=== PATIENT | male | born 1980 | race Caucasian/White ===

== ENCOUNTER → 2017-11-28 | Emergency (ER) | payer BC | END | disposition home or self-care (01) | LOC: E/R 17:10 | DX: R05 Cough (principal); J44.9 Chronic obstructive pulmonary disease, unspecified; J45.909 Unspecified asthma, uncomplicated; Z87.891 Personal history of nicotine dependence | CPT/HCPCS: 99284 ==

== ENCOUNTER 2017-12-11 10:08 | Emergency (ER) | payer BC ==
[2017-12-11] MEDS: FUROSEMIDE 40 MG INJ IV (11:30)
[2017-12-11] MEDS: METHYLPREDNISOLONE 125 MG INJ IV (11:30)
[2017-12-11] MEDS: ALBUTEROL 0.5% (NEB) 2.5 MG/0.5 ML AMP INH (11:37)
[2017-12-11] MEDS: IPRATROPIUM (NEB) 0.5 MG/2.5 ML AMP INH (11:37)
[2017-12-11 11:41] LABS: ADD MAN DIFF? NO
[2017-12-11 11:43] LABS: BASOPHILS % 0.4 % (0.0-2.0); EOSINOPHILS # 0.3 10^3/ul (0.0-0.5); EOSINOPHILS % 3.9 % (0.0-7.0); HEMOGLOBIN 15.1 g/dl (14.0-18.0); LYMPHOCYTES # 1.2 10^3/ul (0.8-2.9); MEAN CORPUSCULAR HEMOGLOBIN 25.9 pg (29.0-33.0); MEAN CORPUSCULAR HGB CONC 32.8 g/dl (32.0-37.0); MEAN CORPUSCULAR VOLUME 78.9 fl (82.0-101.0); MEAN PLATELET VOLUME 11.4 fl (7.4-10.4); NEUTROPHIL # 4.4 10^3/ul (1.6-7.5); NEUTROPHILS % 63.3 % (39.0-77.0); PLATELET COUNT 222 10^3/UL (140-415); RED BLOOD COUNT 5.83 10^6/ul (4.70-6.10); RED CELL DISTRIBUTION WIDTH 14.3 % (11.5-14.5)
[2017-12-11 12:01] LABS: ANION GAP 11 (8-16); BLOOD UREA NITROGEN 15 mg/dl (7-20); CALCIUM 8.5 mg/dl (8.4-10.2); CARBON DIOXIDE 26 mmol/L (21-31); CHLORIDE 111 mmol/L (97-110); CREATININE 1.05 mg/dl (0.61-1.24); GLUCOSE 92 mg/dl (70-220); POTASSIUM 4.2 mmol/L (3.5-5.1); SODIUM 144 mmol/L (135-144)
[2017-12-11 12:13] LABS: B-TYPE NATRIURETIC PEPTIDE 87 PG/ML (0-125)
[2017-12-11 12:18] LABS: TROPONIN-I < 0.012 ng/ml (0.00-0.12)
== END 2017-12-11 13:13 | disposition home or self-care (01) ==
LOC: E/R 10:08
DX: J44.1 Chronic obstructive pulmonary disease with (acute) exacerbation (principal); J45.909 Unspecified asthma, uncomplicated; Z87.891 Personal history of nicotine dependence
CPT/HCPCS: 71045; 80048; 83880; 84484; 85025; 93005; 94644; 96374; 96375; 99285-25

== ENCOUNTER 2017-12-18 09:08 | Emergency (ER) | payer BC ==
[2017-12-18 11:19] LABS: ADD MAN DIFF? NO
[2017-12-18 11:27] LABS: BASOPHILS % 0.4 % (0.0-2.0); EOSINOPHILS # 0.4 10^3/ul (0.0-0.5); EOSINOPHILS % 4.5 % (0.0-7.0); HEMOGLOBIN 14.8 g/dl (14.0-18.0); LYMPHOCYTES # 2.3 10^3/ul (0.8-2.9); LYMPHOCYTES % 24.4 % (15.0-51.0); MEAN CORPUSCULAR HEMOGLOBIN 26.1 pg (29.0-33.0); MEAN CORPUSCULAR HGB CONC 32.9 g/dl (32.0-37.0); MEAN CORPUSCULAR VOLUME 79.2 fl (82.0-101.0); MEAN PLATELET VOLUME 10.5 fl (7.4-10.4); MONOCYTES % 10.5 % (0.0-11.0); NEUTROPHIL # 5.5 10^3/ul (1.6-7.5); NEUTROPHILS % 58.9 % (39.0-77.0); PLATELET COUNT 237 10^3/UL (140-415); RED BLOOD COUNT 5.68 10^6/ul (4.70-6.10); RED CELL DISTRIBUTION WIDTH 14.2 % (11.5-14.5)
[2017-12-18 11:27] LABS: WHITE BLOOD COUNT 9.4 10^3/ul (4.8-10.8)
[2017-12-18 11:46] LABS: PROTIME 12.2 Sec (11.9-14.9)
[2017-12-18 11:47] LABS: PARTIAL THROMBOPLASTIN TIME 29.5 Sec (25.0-35.0)
== END 2017-12-18 12:36 | disposition home or self-care (01) ==
LOC: E/R 09:08
DX: J42 Unspecified chronic bronchitis (principal); R04.2 Hemoptysis; J45.909 Unspecified asthma, uncomplicated; Z87.891 Personal history of nicotine dependence
CPT/HCPCS: 71045; 85025; 85610; 85730; 93005; 99285-25

== ENCOUNTER 2017-12-26 16:52 | Emergency (ER) | payer BC | END 2017-12-26 17:26 | disposition home or self-care (01) | LOC: E/R 16:52 | DX: K08.89 Other specified disorders of teeth and supporting structures (principal); J45.909 Unspecified asthma, uncomplicated; F17.210 Nicotine dependence, cigarettes, uncomplicated | CPT/HCPCS: 99283 ==

== ENCOUNTER 2018-01-07 15:58 | Emergency (ER) | payer BC ==
[2018-01-07] MEDS: IPRATROPIUM (NEB) 0.5 MG/2.5 ML AMP NEB (17:27)
[2018-01-07] MEDS: ALBUTEROL 0.083% (NEB) 2.5 MG/3 ML AMP NEB (17:27)
[2018-01-07] MEDS: predniSONE 20 MG TAB PO (17:42)
== END 2018-01-07 18:40 | disposition home or self-care (01) ==
LOC: FTE 15:58
DX: J44.1 Chronic obstructive pulmonary disease with (acute) exacerbation (principal)
CPT/HCPCS: 71045; 94664; 99284-25

== ENCOUNTER 2018-01-23 13:01 | Emergency (ER) | payer BC ==
[2018-01-23] MEDS: ASPIRIN 325 MG TAB PO (13:34)
[2018-01-23 13:36] LABS: ADD MAN DIFF? NO
[2018-01-23 13:38] LABS: WHITE BLOOD COUNT 9.2 10^3/ul (4.8-10.8)
[2018-01-23 13:38] LABS: BASOPHILS % 0.4 % (0.0-2.0); EOSINOPHILS # 0.4 10^3/ul (0.0-0.5); EOSINOPHILS % 3.9 % (0.0-7.0); HEMATOCRIT 45.2 % (42.0-52.0); HEMOGLOBIN 14.8 g/dl (14.0-18.0); LYMPHOCYTES # 1.7 10^3/ul (0.8-2.9); MEAN CORPUSCULAR HEMOGLOBIN 26.1 pg (29.0-33.0); MEAN CORPUSCULAR HGB CONC 32.7 g/dl (32.0-37.0); MEAN CORPUSCULAR VOLUME 79.7 fl (82.0-101.0); MONOCYTE # 0.7 10^3/ul (0.3-0.9); MONOCYTES % 8.1 % (0.0-11.0); NEUTROPHIL # 6.2 10^3/ul (1.6-7.5); NEUTROPHILS % 67.8 % (39.0-77.0); PLATELET COUNT 221 10^3/UL (140-415); RED BLOOD COUNT 5.67 10^6/ul (4.70-6.10); RED CELL DISTRIBUTION WIDTH 14.2 % (11.5-14.5)
[2018-01-23 13:53] LABS: INR 0.94; PARTIAL THROMBOPLASTIN TIME 31.2 Sec (25.0-35.0); PROTIME 12.7 Sec (11.9-14.9)
[2018-01-23 13:56] LABS: ALANINE AMINOTRANSFERASE 28 IU/L (13-69); ALBUMIN 3.4 g/dl (3.3-4.9); ALBUMIN/GLOBULIN RATIO 1.41; ALKALINE PHOSPHATASE 74 IU/L (42-121); ANION GAP 13 (8-16); ASPARTATE AMINO TRANSFERASE 16 IU/L (15-46); BILIRUBIN,INDIRECT 0.3 mg/dl (0-1.1); BILIRUBIN,TOTAL 0.3 mg/dl (0.2-1.3); BLOOD UREA NITROGEN 20 mg/dl (7-20); CALCIUM 8.6 mg/dl (8.4-10.2); CARBON DIOXIDE 25 mmol/L (21-31); CHLORIDE 110 mmol/L (97-110); CREATINE KINASE 115 IU/L (23-200); CREATININE 1.05 mg/dl (0.61-1.24); GLUCOSE 94 mg/dl (70-220); SODIUM 144 mmol/L (135-144); TOTAL PROTEIN 5.8 g/dl (6.1-8.1)
[2018-01-23] MEDS: ALBUTEROL 0.5% (NEB) 2.5 MG/0.5 ML AMP NEB (14:03)
[2018-01-23] MEDS: IPRATROPIUM (NEB) 0.5 MG/2.5 ML AMP NEB (14:03)
[2018-01-23 14:08] LABS: B-TYPE NATRIURETIC PEPTIDE 33 PG/ML (0-125); CK INDEX 1.9
[2018-01-23 14:12] LABS: CK-MB 2.24 ng/ml (0.0-2.4); TROPONIN-I < 0.012 ng/ml (0.000-0.120)
[2018-01-23] MEDS: METHYLPREDNISOLONE 125 MG INJ IV (14:13)
[2018-01-23 14:20] LABS: AMPHETAMINE/METHAMPHETAMINE Negative (NEGATIVE); BARBITURATES Negative (NEGATIVE); BENZODIAZEPINES Negative (NEGATIVE); CANNABINOIDS Positive (NEGATIVE); COCAINE Negative (NEGATIVE); OPIATES Negative (NEGATIVE)
[2018-01-23] MEDS: LIDOCAINE/MYLANTA 40 ML BTL PO (15:34)
[2018-01-23] MEDS: KETOROLAC 30 MG INJ IV (16:57)
== END 2018-01-23 17:26 | disposition home or self-care (01) ==
LOC: E/R 13:01
DX: M94.0 Chondrocostal junction syndrome [Tietze] (principal); J44.1 Chronic obstructive pulmonary disease with (acute) exacerbation; F17.210 Nicotine dependence, cigarettes, uncomplicated; J45.901 Unspecified asthma with (acute) exacerbation; R07.9 Chest pain, unspecified
CPT/HCPCS: 71045; 80053; 80307; 82550; 82553; 83880; 84484; 85025; 85610; 85730; 94644; 96374; 96375; 99285-25

== ENCOUNTER 2018-03-04 09:20 | Emergency (ER) | payer BC ==
[2018-03-04 10:57] LABS: ADD UMIC NO; UR ASCORBIC ACID NEGATIVE (NEGATIVE); UR BILIRUBIN (Dip) NEGATIVE (NEGATIVE); UR BLOOD (Dip) NEGATIVE (NEGATIVE); UR CLARITY CLEAR (CLEAR); UR COLOR YELLOW (YELLOW); UR GLUCOSE (Dip) NEGATIVE (NEGATIVE); UR KETONES (Dip) NEGATIVE (NEGATIVE); UR LEUKOCYTE ESTERASE (Dip) NEGATIVE Leu/ul (NEGATIVE); UR NITRITE (Dip) NEGATIVE (NEGATIVE); UR SPECIFIC GRAVITY (Dip) 1.021 (1.003-1.030); UR TOTAL PROTEIN (Dip) NEGATIVE (NEGATIVE); UR UROBILINOGEN (Dip) NEGATIVE (NEGATIVE)
== END 2018-03-04 11:52 | disposition home or self-care (01) ==
LOC: FTE 09:20
DX: N43.3 Hydrocele, unspecified (principal); J45.909 Unspecified asthma, uncomplicated; F17.210 Nicotine dependence, cigarettes, uncomplicated
CPT/HCPCS: 76870; 81003; 87591; 99284-25

== ENCOUNTER 2018-03-20 09:07 | Emergency (ER) | payer BC ==
[2018-03-20] MEDS: IBUPROFEN 800 MG TAB PO (09:43)
== END 2018-03-20 10:47 | disposition home or self-care (01) ==
LOC: FTE 09:07
DX: M54.6 Pain in thoracic spine (principal)
CPT/HCPCS: 73010; 99283-25

== ENCOUNTER 2018-05-26 00:03 | Emergency (ER) | payer BC | END 2018-05-26 05:03 | disposition home or self-care (01) | LOC: FTE 00:03 | DX: L72.0 Epidermal cyst (principal); N43.3 Hydrocele, unspecified; J45.909 Unspecified asthma, uncomplicated; F17.210 Nicotine dependence, cigarettes, uncomplicated | CPT/HCPCS: 76870; 99284-25 ==

== ENCOUNTER 2018-09-17 13:41 | Emergency (ER) | payer BC ==
[2018-09-17 16:27] LABS: ADD MAN DIFF? NO
[2018-09-17 16:37] LABS: BASOPHILS % 0.2 % (0.0-2.0); EOSINOPHILS # 0.2 10^3/ul (0.0-0.5); EOSINOPHILS % 2.2 % (0.0-7.0); HEMATOCRIT 43.2 % (42.0-52.0); HEMOGLOBIN 13.9 g/dl (14.0-18.0); LYMPHOCYTES % 24.5 % (15.0-51.0); MEAN CORPUSCULAR HEMOGLOBIN 25.9 pg (29.0-33.0); MEAN CORPUSCULAR HGB CONC 32.2 g/dl (32.0-37.0); MEAN CORPUSCULAR VOLUME 80.4 fl (82.0-101.0); MEAN PLATELET VOLUME 11.3 fl (7.4-10.4); MONOCYTE # 0.6 10^3/ul (0.3-0.9); MONOCYTES % 7.4 % (0.0-11.0); NEUTROPHIL # 5.4 10^3/ul (1.6-7.5); NEUTROPHILS % 65.3 % (39.0-77.0); PLATELET COUNT 229 10^3/UL (140-415); RED BLOOD COUNT 5.37 10^6/ul (4.70-6.10); RED CELL DISTRIBUTION WIDTH 14.2 % (11.5-14.5)
[2018-09-17 16:37] LABS: WHITE BLOOD COUNT 8.2 10^3/ul (4.8-10.8)
[2018-09-17 16:46] LABS: ADD UMIC YES; UR AMORPHOUS CRYSTAL FEW /HPF (NONE SEEN); UR ASCORBIC ACID NEGATIVE (NEGATIVE); UR BILIRUBIN (Dip) NEGATIVE (NEGATIVE); UR BLOOD (Dip) NEGATIVE (NEGATIVE); UR CLARITY CLOUDY (CLEAR); UR COLOR YELLOW (YELLOW); UR GLUCOSE (Dip) NEGATIVE (NEGATIVE); UR KETONES (Dip) NEGATIVE (NEGATIVE); UR LEUKOCYTE ESTERASE (Dip) NEGATIVE Leu/ul (NEGATIVE); UR NITRITE (Dip) NEGATIVE (NEGATIVE); UR RBC 0 /HPF (0-5); UR SPECIFIC GRAVITY (Dip) 1.019 (1.003-1.030); UR TOTAL PROTEIN (Dip) NEGATIVE (NEGATIVE); UR UROBILINOGEN (Dip) NEGATIVE (NEGATIVE); UR WBC 0 /HPF (0-5)
[2018-09-17 16:58] LABS: ALANINE AMINOTRANSFERASE 25 IU/L (13-69); ALBUMIN 4.1 g/dl (3.3-4.9); ALBUMIN/GLOBULIN RATIO 1.51; ALKALINE PHOSPHATASE 72 IU/L (42-121); ANION GAP 9 (5-13); ASPARTATE AMINO TRANSFERASE 20 IU/L (15-46); BLOOD UREA NITROGEN 20 mg/dl (7-20); CALCIUM 9.5 mg/dl (8.4-10.2); CARBON DIOXIDE 27 mmol/L (21-31); CHLORIDE 107 mmol/L (97-110); CREATININE 1.16 mg/dl (0.61-1.24); Estimated GFR > 60 mL/min (>60); GLUCOSE 110 mg/dl (70-220); POTASSIUM 4.1 mmol/L (3.5-5.1); SODIUM 143 mmol/L (135-144); TOTAL PROTEIN 6.8 g/dl (6.1-8.1)
[2018-09-17 17:06] LABS: AMPHETAMINE/METHAMPHETAMINE Negative (NEGATIVE); BARBITURATES Negative (NEGATIVE); BENZODIAZEPINES Negative (NEGATIVE); CANNABINOIDS Positive (NEGATIVE); COCAINE Negative (NEGATIVE); OPIATES Negative (NEGATIVE)
== END 2018-09-17 18:03 | disposition home or self-care (01) ==
LOC: FTE 13:41
DX: R06.02 Shortness of breath (principal); E11.9 Type 2 diabetes mellitus without complications; F17.210 Nicotine dependence, cigarettes, uncomplicated; J45.909 Unspecified asthma, uncomplicated
CPT/HCPCS: 71045; 80053; 80307; 81001; 85025; 99284-25

== ENCOUNTER 2019-01-15 08:36 | Emergency (ER) | payer BC ==
[2019-01-15] MEDS ORDERED: KETOROLAC 60 MG INJ IM (08:52)
[2019-01-15] MEDS ORDERED: METHYLPREDNISOLONE 125 MG INJ IM (09:00)
[2019-01-15] MEDS: KETOROLAC 60 MG INJ IM (09:41)
== END 2019-01-15 10:01 | disposition home or self-care (01) ==
LOC: FTE 08:36
DX: M54.6 Pain in thoracic spine (principal); J45.909 Unspecified asthma, uncomplicated; F17.210 Nicotine dependence, cigarettes, uncomplicated
CPT/HCPCS: 96372; 99284-25

== ENCOUNTER 2019-02-09 08:30 | Emergency (ER) | payer BC | END 2019-02-09 09:30 | disposition home or self-care (01) | LOC: FTE 08:30 | DX: R19.7 Diarrhea, unspecified (principal); J45.909 Unspecified asthma, uncomplicated; Z87.891 Personal history of nicotine dependence | CPT/HCPCS: 99282 ==

== ENCOUNTER 2019-04-03 17:35 | Emergency (ER) | payer BC ==
[2019-04-03 18:46] LABS: ADD UMIC YES; UR AMORPHOUS CRYSTAL FEW /HPF (NONE SEEN); UR ASCORBIC ACID NEGATIVE (NEGATIVE); UR BACTERIA FEW /HPF (NONE SEEN); UR BILIRUBIN (Dip) NEGATIVE (NEGATIVE); UR BLOOD (Dip) 1+ mg/dL (NEGATIVE); UR CLARITY SLIGHTLY CLOUDY (CLEAR); UR COLOR YELLOW (YELLOW); UR GLUCOSE (Dip) NEGATIVE (NEGATIVE); UR KETONES (Dip) NEGATIVE (NEGATIVE); UR LEUKOCYTE ESTERASE (Dip) NEGATIVE Leu/ul (NEGATIVE); UR MUCUS FEW /HPF (NONE SEEN); UR NITRITE (Dip) NEGATIVE (NEGATIVE); UR RBC 3 /HPF (0-5); UR SPECIFIC GRAVITY (Dip) 1.023 (1.003-1.030); UR TOTAL PROTEIN (Dip) NEGATIVE (NEGATIVE); UR UROBILINOGEN (Dip) NEGATIVE (NEGATIVE); UR WBC 2 /HPF (0-5)
== END 2019-04-03 20:18 | disposition home or self-care (01) ==
LOC: FTE 17:35
DX: N50.9 Disorder of male genital organs, unspecified (principal); J45.909 Unspecified asthma, uncomplicated; Z87.891 Personal history of nicotine dependence
CPT/HCPCS: 76870; 81001; 99284-25

== ENCOUNTER → 2019-05-07 | Emergency (ER) | payer BC ==
[2019-05-07] MEDS: ONDANSETRON (ODT) 4 MG TAB ODT (06:58)
[2019-05-07] MEDS: HYDROCODONE/APAP (5/325) TAB PO (06:58)
[2019-05-07] MEDS: DEXAMETHASONE 10 MG/ML 1 ML INJ IM (06:58)
[2019-05-07 07:01] LABS: URINE PH (Dip) POC 5.5 (5.0-8.5)
[2019-05-07 07:01] LABS: URINE BLOOD (Dip) POC Trace-intact (NEGATIVE); URINE GLUCOSE (Dip) POC Negative (NEGATIVE); URINE KETONES (Dip) POC Negative (NEGATIVE); URINE LEUKOCYTE EST (Dip) POC Negative (NEGATIVE); URINE NITRITE (Dip) POC Negative (NEGATIVE); URINE TOTAL PROTEIN POC Negative (NEGATIVE)
== END | disposition home or self-care (01) ==
LOC: FTE 06:33
DX: M54.5 Low back pain (principal)
CPT/HCPCS: 81003; 96372; 99284-25

== ENCOUNTER 2019-05-12 00:51 | Emergency (ER) | payer BC ==
[2019-05-12] MEDS: HYDROCODONE/APAP (10/325) TAB PO (03:50)
[2019-05-12] MEDS: ONDANSETRON (ODT) 4 MG TAB ODT (03:50)
[2019-05-12] MEDS: CEFTRIAXONE 1 GM INJ IM (04:46)
== END 2019-05-12 05:09 | disposition home or self-care (01) ==
LOC: FTE 00:51
DX: N45.2 Orchitis (principal); K40.90 Unilateral inguinal hernia, without obstruction or gangrene, not specified as recurrent; R91.1 Solitary pulmonary nodule; F17.210 Nicotine dependence, cigarettes, uncomplicated
CPT/HCPCS: 74176; 76870; 81003; 87086; 96372; 99285-25

== ENCOUNTER 2019-05-14 12:20 | Emergency (ER) | payer BC ==
[2019-05-14 17:06] LABS: HEPATITIS B SURFACE ANTIGEN NEGATIVE (NEGATIVE)
[2019-05-14 17:23] LABS: HEPATITIS C VIRAL ANTIBODY NEGATIVE (NEGATIVE); HIV 1&2 ANTIBODY NEGATIVE (NEGATIVE)
[2019-05-14 18:40] LABS: HEPATITIS B SURFACE ANTIBODY POSITIVE (NEGATIVE)
== END 2019-05-14 17:37 | disposition home or self-care (01) ==
LOC: E/R 12:20
DX: S61.431A Puncture wound without foreign body of right hand, initial encounter (principal); W46.0XXA Contact with hypodermic needle, initial encounter; Y92.9 Unspecified place or not applicable
CPT/HCPCS: 86703; 86706; 86803; 87340; 99283